=== PATIENT | female | born 1950 | race Hispanic/Latino ===

== ENCOUNTER 2017-04-08 16:11 | Observation (INO) | payer OTHER ==
[~2017-04-08] VITALS: Ht 165.1 cm; Wt 108.4 kg
[2017-04-08 00:20] VITALS: BP 114/78
[2017-04-08 11:15] VITALS: BP 141/82
[~2017-04-08 16:11] MED LIST: ATENOLOL50 MG PO; DICYCLOMINE HCL10 MG PO; LISINOPRIL40 MG PO; OMEPRAZOLE40 MG PO
[2017-04-08] MEDS ORDERED: ASPIRIN 81 MG CHEW TAB PO ONE (16:45)
[2017-04-08 17:07] LABS: CLARITY,URINE CLEAR (CLEAR); COLOR,URINE YELLOW (YELLOW)
[2017-04-08 17:08] LABS: BILIRUBIN,URINE NEGATIVE (NEGATIVE); KETONES,URINE NEGATIVE (NEGATIVE); LEUKOCYTE ESTERASE ,URINE NEGATIVE (NEGATIVE); NITRITE,URINE NEGATIVE (NEGATIVE); PROTEIN,URINE DIPSTICK NEGATIVE (NEGATIVE); URINE UROBILINOGEN 0.2 mg/dL (0.2 - 1)
[2017-04-08 17:08] LABS: BASOPHILS % 0.7 % (0.0-1.0); EOSINOPHILS # (AUTO) 0.1 (0.0-0.4); EOSINOPHILS % 1.2 % (0.0-6.0); HEMATOCRIT 43.1 % (34.2-44.1); HEMOGLOBIN 14.2 g/dL (12.0-16.0); LYMPHOCYTES # (AUTO) 2.2 (1.0-3.2); LYMPHOCYTES % 39.2 % (18.0-39.1); MEAN CORPUSCULAR HEMOGLOBIN 28.4 pg (28-32); MEAN CORPUSCULAR HGB CONC 32.9 g/dL (31-35); MEAN CORPUSCULAR VOLUME 86.2 fL (81-99); MONOCYTES # (AUTO) 0.4 (0.2-0.8); NEUTROPHILS # (AUTO) 2.9 (2.1-6.9); NEUTROPHILS % 51.5 % (38.7-80.0); PLATELET COUNT 224 x10e3/uL (140-360); RED CELL DISTRIBUTION WIDTH 13.4 % (11.7-14.4)
[2017-04-08 17:13] LABS: INR 0.87; PROTHROMBIN TIME 12.3 seconds (11.9-14.5)
[2017-04-08] MEDS ORDERED: NITROGLYCERIN 0.4 MG SUBL SL ONE (17:15)
--- NOTE | 2017-04-08 17:22 | Diagnostic Imaging Report ---
PROCEDURE: A single AP view of the chest. COMPARISON: 02/22/17 INDICATIONS: CHEST PAIN FINDINGS: Lines/tubes: None. Lungs: The lungs are well inflated and clear. There is no evidence of pneumonia or pulmonary edema. Pleura: There is no pleural effusion or pneumothorax. Heart and mediastinum: The cardiac silhouette is mildly enlarged. Aorta is mildly calcified and tortuous. Bones: No acute bony abnormality. Upper abdomen surgical clips. IMPRESSION: 1. No acute cardiopulmonary disease. Dictated by: Ronaldo Johnson M.D. on 04/08/2017 at 17:30 Electronically approved by: Ronaldo Johnson M.D. on 04/08/2017 at 17:30
[2017-04-08 17:24] LABS: EPITHELIAL CELLS,URINE FEW /LPF; WBC,URINE (MAN) 0-5 /HPF (0-5)
[2017-04-08 17:31] LABS: ALBUMIN 3.9 g/dL (3.5-5.0); ANION GAP 13.5 mmol/L (8-16); CALCIUM 8.9 mg/dL (8.4-10.2); CREATININE, SERUM 0.97 mg/dL (0.57-1.11); POTASSIUM 3.5 mmol/L (3.5-5.1)
[2017-04-08 17:50] LABS: CREATINE KINASE MB 0.5 ng/mL (0.00-5.00); THYROID STIMULATING HORMONE 5.404 uIU/mL (0.350-4.940); TROPONIN I 0.01 ng/mL (0-0.300)
[2017-04-08] MEDS ORDERED: NITROGLYCERIN 0.4 MG SUBL SL PRN (18:45)
--- NOTE | 2017-04-08 21:26 | Diagnostic Imaging Report ---
EXAM: CT of the chest with and without IV contrast DATE: April 2017 Time stamp on exam: 2001 hours INDICATION: Chest pain to back, abnormal EKG, clinical concern for dissection COMPARISON: None TECHNIQUE: Multidetector CT scanning of the chest was performed. Coronal and sagittal multiplanar reformations were obtained. Dissection protocol performed. Multiplanar 3-D reformations were created for evaluation. IV Contrast: 100 cc Isovue-370 CTDIvol has been reviewed. It is below the limits set by the Radiation Protocol Committee (RPC). FINDINGS: LUNGS AND AIRWAYS: The trachea and major bronchi are unremarkable. No consolidations or edema. PLEURA: No effusions or pneumothorax. HEART, MEDIASTINUM, VESSELS: The heart is mildly enlarged. No abnormal pericardial effusion. No thoracic aorta aneurysm, dissection or evidence of intramural hematoma. The thoracic aorta is tortuous. UPPER ABDOMEN: Normal MUSCULOSKELETAL: No acute findings. IMPRESSION: Normal CTA of the chest. No evidence of thoracic aortic dissection. Signed by: Dr. Gretta Maravilla M.D. on 04/08/2017 9:23 PM
[2017-04-08 22:15] VITALS: BP 140/89
[2017-04-08] MEDS ORDERED: SODIUM CHLORIDE 0.9% 50ML 50 ML ONE (22:38)
[2017-04-08] MEDS ORDERED: IOPAMIDOL 370 MG/ML 200 ML INFUS..BTL INJ ONE (22:38)
[2017-04-08 22:57] VITALS: BP 140/89
[2017-04-09] VITALS: BP 141/82
[2017-04-09 02:16] LABS: CREATINE KINASE MB 0.6 ng/mL (0.00-5.00); TROPONIN I 0.007 ng/mL (0-0.300)
[2017-04-09 04:00] VITALS: BP 122/70
[2017-04-09 06:43] LABS: CHOL/HDL RATIO 4.4 (3.0-3.6)
[2017-04-09 08:24] VITALS: BP 144/86
[2017-04-09] MEDS ORDERED: ASPIRIN 325 MG TAB EC PO SCH (09:00)
[2017-04-09] MEDS ORDERED: ATENOLOL 50 MG TAB PO SCH (09:00)
[2017-04-09] MEDS ORDERED: DICYCLOMINE HCL 10 MG CAP PO SCH (09:00)
--- NOTE | 2017-04-09 09:00 | Consultation ---
DATE OF CONSULTATION: REQUESTING PHYSICIAN: Dr. Pearce REASON FOR CONSULT: Chest pain. HISTORY OF PRESENTING ILLNESS: Ms. Bennett is 66-year-old lady with past medical history as listed below, presented with complaints of chest pain. Patient states she started developing chest pain a couple of days back, was all across the chest, nonradiating. She was a little short of breath, no diaphoresis, lasted for several hours. She also had some abdominal pain. No nausea, vomiting, or diarrhea. Patient states she has had similar episodes of chest pain in the past. Reportedly underwent a stress test about a year back at [facility] and was told all was fine. She feels better now. REVIEW OF SYMPTOMS: CONSTITUTIONAL: Has some fatigue and weakness. HEENT: No headache, blurring of vision, seizures, syncope. CARDIOVASCULAR: Had chest pain. Mild dyspnea. No orthopnea, PND. RESPIRATORY: No cough, fever, expectoration. GI: Has some abdominal pain. No vomiting, diarrhea. : No dysuria, frequency, incontinence. ALLERGIES: PENICILLIN. MEDICATIONS: See list. PAST MEDICAL HISTORY: History of hypertension. SOCIAL HISTORY: Does not smoke or drink. FAMILY HISTORY: Noncontributory. PHYSICAL EXAMINATION: GENERAL: Moderately-built and nourished lady, alert, oriented, not in any obvious distress. VITAL SIGNS: Heart rate is 58, blood pressure 122/70, respiratory rate is 18, temperature is 97.7. HEENT: Atraumatic. NECK: No JVD, bruit, thyromegaly, or lymphadenopathy. CARDIOVASCULAR: First and second heart sounds heard. No murmurs, rubs, or gallops appreciated. CHEST: Clear to auscultation. ABDOMEN: Soft, nontender. EXTREMITIES: No edema. LABS: EKG shows sinus rhythm, 65 beats per minute, left axis deviation, normal intervals. T-wave inversions in III, aVF, V3 to V5, LVH. IMPRESSION: 1. Chest pain. 2. History of hypertension. 3. Abdominal pain. 4. Abnormal electrocardiogram. PLAN: 1. Cardiac enzymes are negative so far. 2. Get echocardiogram to assess LV function and valvular function. 3. Continue with aspirin. 4. Will schedule her for a Lexiscan stress test. 5. Further cardiac workup depending on clinical course. 6. Discussed my impression and plan of management with the patient and she understands it. As always, I appreciate and thank you very much for your referrals. Job#: [id number]
[2017-04-09] MEDS ORDERED: LISINOPRIL 20 MG TAB PO SCH (09:30)
[2017-04-09 09:58] VITALS: BP 144/86
--- NOTE | 2017-04-09 14:10 | History and Physical ---
Placed in observation. CHIEF COMPLAINT: Atypical chest pain. HISTORY OF PRESENT ILLNESS: Patient is a 66-year-old female who came in with left-sided more near the neck area pain. The patient also had pain in the back. Apparently she fell. Pain was significant, especially with moving her left upper extremity. It is reproducible by pressure to the left muscular chest area. No radiation. No nausea or vomiting. No diaphoresis. The patient has no history of coronary disease. The patient is stable. PAST MEDICAL HISTORY: Cholecystectomy, hypertension, IBS. PAST SURGICAL HISTORY: As above. FAMILY HISTORY: Negative for coronary disease. SOCIAL HISTORY: Patient does not smoke or use alcohol. No recreational drug use. REVIEW OF SYSTEMS: Atypical chest pain. No nausea, no vomiting, no abdominal pain. Chronic lower back pain increased with status post fall. PHYSICAL EXAMINATION GENERAL: Patient is not in acute distress. VITAL SIGNS: Temperature is 98, blood pressure 144/86, pulse rate 67, respiratory rate 18. HEENT: Normocephalic, atraumatic, anicteric. NECK: Supple grossly. PULMONARY: Clear. CARDIOVASCULAR: Regular rate and rhythm. ABDOMEN: Soft and unremarkable. EXTREMITIES: No cyanosis or edema. NEUROLOGIC: No focal deficit. LABORATORY: CBC is normal. 140, 3.5, 103, bicarb 27, BUN 17, creatinine 0.9, glucose is 92. Cardiac enzymes are negative. CTA of the chest, chest x-ray, EKG, cardiac enzymes are otherwise unremarkable. IMPRESSION 1. Atypical chest pain. 2. Musculoskeletal pain. PLAN: Consultation with director distribution. If cleared, the patient should be able to go home today. Will give the patient Mobic 7.5 mg b.i.d. p.r.n. for pain. Continue with home medication. Job#: [id number]
[2017-04-10] MEDS ORDERED: LISINOPRIL 20 MG TAB PO SCH (09:00)
== END 2017-04-09 11:11 | disposition home or self-care (01) ==
LOC: ER 16:11 → EDBEDREQ 19:07 → ERHOLD 20:20 → IMCU 21:19
PROVIDERS: ADMIT Internal Medicine; ATTEND Internal Medicine
DX: R07.89 Other chest pain (principal); I10 Essential (primary) hypertension; R10.9 Unspecified abdominal pain; R94.31 Abnormal electrocardiogram [ECG] [EKG]
CPT/HCPCS: 36415; 71010; 71275; 80053; 80061; 81001; 82550; 82553; 83690; 83880; 84443; 84484; 85025; 85610; 85730; 87086; 93005; 99284; G0378; Q9967

== ENCOUNTER → 2018-12-22 | Outpatient (CLI) | payer MEDICARE ==
[~2018-12-22] MED LIST changes: +IOPAMIDOL 370 MG/ML 200 ML INFUS..BTL INJ ONE; +SODIUM CHLORIDE 0.9% 50ML 50 ML ONE
[2018-12-22 08:54] LABS: CREATININE, SERUM 0.94 mg/dL (0.57-1.11)
--- NOTE | 2018-12-22 09:56 | Diagnostic Imaging Report ---
EXAMINATION: CHEST 2 VIEWS INDICATION: Renal malignancy. COMPARISON: Chest CT of 04/08/2017 FINDINGS: LINES/TUBES:None LUNGS:The lungs are well-inflated. No focal consolidation or pulmonary edema. No radiographically apparent pulmonary nodules. PLEURA:No pleural effusion or pneumothorax. MEDIASTINUM:The cardiomediastinal silhouette appears normal in size and shape. Atherosclerotic calcifications of the thoracic aorta. BONES/SOFT TISSUES:No acute osseous injury. ABDOMEN:No free air under the diaphragm. Status post cholecystectomy. IMPRESSION: No focal pneumonia or pulmonary edema. No radiographically apparent pulmonary nodules. Signed by: Alanis Mendoza MD on 12/22/2018 9:52 AM
--- NOTE | 2018-12-22 10:17 | Diagnostic Imaging Report ---
EXAM: CT Abdomen WITH intravenous contrast INDICATION: Renal malignancy COMPARISON: Chest CTA of 04/08/2017 TECHNIQUE: The abdomen was scanned utilizing a multidetector helical scanner from the lung base to the iliac crest after administration of IV contrast. Coronal and sagittal reformations were obtained. Routine protocol was performed. Scan was performed during portal venous phase. IV CONTRAST: 100mL of Isovue 370 ORAL CONTRAST: Water RADIATION DOSE: Total DLP: 362.97 mGy*cm Dose modulation, iterative reconstruction, and/or weight based adjustment of the mA/kV was utilized to reduce the radiation dose to as low as reasonably achievable. FINDINGS: LOWER THORAX: Normal. HEPATOBILIARY: Diffuse hepatic steatosis. No focal liver lesion. No biliary ductal dilation. Status post cholecystectomy. SPLEEN: No splenomegaly. PANCREAS: No focal masses or ductal dilatation. ADRENALS: No adrenal nodules. Status post right adrenalectomy. KIDNEYS/URETERS: Status post right nephrectomy. No suspicious soft tissue lesions in the postoperative bed. No renal calculi, hydronephrosis, or solid mass lesion of the left kidney. PERITONEUM / RETROPERITONEUM: No free air or fluid. LYMPH NODES: No lymphadenopathy. VESSELS: Scattered atherosclerotic calcifications of the nonaneurysmal abdominal aorta and major branches. GI TRACT: No distention or wall thickening. BONES AND SOFT TISSUES: No acute osseous injury. No suspicious lytic or blastic lesions. IMPRESSION: Status post right nephrectomy. No evidence of recurrent disease in the nephrectomy bed. No hydronephrosis, renal calculi, or mass lesion of the left kidney. Hepatic steatosis. Signed by: Alanis Mendoza MD on 12/22/2018 10:14 AM
== END ==
LOC: CT 07:45
PROVIDERS: ATTEND Urology
DX: C64.9 Malignant neoplasm of unspecified kidney, except renal pelvis (principal)
CPT/HCPCS: 36415; 71046; 74160; 82565; 84520; Q9967

== ENCOUNTER 2020-12-27 10:47 | Outpatient (RCR) | payer MEDICARE ==
[~2020-12-27 10:47] MED LIST changes: -IOPAMIDOL 370 MG/ML 200 ML INFUS..BTL INJ ONE; -SODIUM CHLORIDE 0.9% 50ML 50 ML ONE
== END 2020-12-29 ==
LOC: PT 10:47
PROVIDERS: ATTEND Specialist
DX: M17.12 Unilateral primary osteoarthritis, left knee (principal); M62.81 Muscle weakness (generalized); M25.562 Pain in left knee; M25.662 Stiffness of left knee, not elsewhere classified; R26.2 Difficulty in walking, not elsewhere classified